=== PATIENT | male | born 1935 | race Caucasian/White ===

== ENCOUNTER 2021-07-02 13:25 | Outpatient (CLI) | payer MEDICARE | END 2021-07-02 23:59 | disposition home or self-care (01) | LOC: RAD 13:25 | PROVIDERS: ATTEND Family Medicine | DX: R13.12 Dysphagia, oropharyngeal phase (principal); I69.391 Dysphagia following cerebral infarction; I69.322 Dysarthria following cerebral infarction; R49.0 Dysphonia; Y84.4 Aspiration of fluid as the cause of abnormal reaction of the patient, or of later complication, without mention of misadventure at the time of the procedure | CPT/HCPCS: 74230 ==